=== PATIENT | female | born 1940 | race Caucasian/White ===

== ENCOUNTER 2019-02-08 12:46 | Outpatient (CLI) | payer MEDICARE, BC ==
--- NOTE | 2019-02-08 14:23 | MRI ---
MRI BRAIN AND IACs WITH AND WITHOUT IV CONTRAST: HISTORY: Sudden right ear hearing loss COMPARISON: None CORRELATION: None FINDINGS: No restricted diffusion is seen. No evidence of infarct, hemorrhage, mass, midline shift or abnormal extra-axial fluid collections is noted. No abnormal postcontrast enhancement is seen. The ventricular size is appropriate and the basilar cisterns are patent. There are multiple foci of T2 prolongation in the periventricular white matter, consistent with chron ic small vessel ischemic disease. High-resolution images through the IACs demonstrate no mass or abnormal postcontrast enhancement. There is mucosal disease in the paranasal sinuses. There is a tiny amount of fluid in the mastoid air cells. IMPRESSION: No evidence of acute intracranial process or mass.
== END 2019-02-08 12:47 | disposition home or self-care (01) ==
LOC: BICMRI 12:46
PROVIDERS: ATTEND Family Medicine
DX: H91.91 Unspecified hearing loss, right ear (principal); H93.11 Tinnitus, right ear
CPT/HCPCS: 70553; 82565

== ENCOUNTER 2019-06-11 15:02 | Outpatient (CLI) | payer MEDICARE, BC ==
--- NOTE | 2019-06-11 15:20 | RAD ---
EXAM: Left knee: 3 views INDICATIONS: Pain COMPARISON: None. FINDINGS: Joint spaces are maintained. No evidence of fracture. No significant degenerative change. N o evidence of joint effusion. No fracture. IMPRESSION: No acute finding
== END 2019-06-11 15:03 | disposition home or self-care (01) ==
LOC: BICRAD 15:02
PROVIDERS: ATTEND Family Medicine
DX: M25.562 Pain in left knee (principal)

== ENCOUNTER 2019-06-17 08:54 | Outpatient (CLI) | payer MEDICARE, BC ==
--- NOTE | 2019-06-17 09:47 | MMO ---
Bilateral MAMMO Bilat Screen [facility]. CLINICAL HISTORY: Patient is 78 years old and is seen for screening. The patient has no family history of breast cancer. The patient has no personal history of cancer. VIEWS: The views performed were: bilateral craniocaudal with tomosynthesis and bilateral mediolateral oblique with tomosynthesis. FILMS COMPARED: The present examination has been compared to prior imaging studies performed at [facility] on 06/15/2013, 07/07/2014, 07/24/2015 and 10/17/2016. This study has been interpreted with the assistance of computer-aided detection. MAMMOGRAM FINDINGS: There are scattered fibroglandular densities. Finding 1: There are vascular calcifications seen in both breasts. Finding 2: There are several intramammary lymph nodes seen in the right breast. There are no suspicious masses, suspicious calcifications, or new areas of architectural distortion. IMPRESSION: THERE IS NO MAMMOGRAPHIC EVIDENCE OF MALIGNANCY. A ROUTINE FOLLOW-UP MAMMOGRAM IN 1 YEAR IS RECOMMENDED. THE RESULTS OF THIS EXAM WERE SENT TO THE PATIENT. ACR BI-RADS Category 2 - Benign finding MAMMOGRAPHY NOTE: 1. A negative mammogram report should not delay a biopsy if a dominant of clinically suspicious mass is present. 2. Approximately 10% to 15% of breast cancers are not detected by mammography. 3. Adenosis and dense breasts may obscure an underlying neoplasm. Reported by: RICCO PEREIRA MD Electonically Signed: [id number]
--- NOTE | 2019-06-17 10:46 | BD ---
EXAM: Bone densitometry using DEXA HISTORY: 78 yo female. Screening for postmenopausal osteoporosis FINDINGS: L1--bone mineral density 0.895 g/sq cm; T score -0.9 ; Z score 1.5 L2--bone mineral density 0.867 g/sq cm; T score -1.5 ; Z score 1.2 L3--bone mineral density 0.979 g/sq cm; T score -1.0 ; Z score 1.8 L4--bone mineral density 0.981 g/sq cm; T score -0.7 ; Z score 2.1 Total L1-L4--bone mineral density 0.934 g/sq cm; T score -1.0 ; Z score 1.6 Left femoral neck--bone mineral density0.708; T score -1.3 ; Z score 1.0 Total proximal left femur--bone mineral density 0.899; T score -0.4 ; Z score 1.7 The 10 year fracture risk for a major osteoporotic fracture is 12% and for a hip fracture is 2.4%. IMPRESSION: Osteopenia
== END 2019-06-17 08:55 | disposition home or self-care (01) ==
LOC: BICMAMMO 08:54
PROVIDERS: ATTEND Family Medicine
DX: Z12.31 Encounter for screening mammogram for malignant neoplasm of breast (principal); Z13.820 Encounter for screening for osteoporosis; M85.89 Other specified disorders of bone density and structure, multiple sites
CPT/HCPCS: 77063; 77067; 77080

== ENCOUNTER 2020-02-16 11:36 | Outpatient (CLI) | payer MEDICARE, BC ==
--- NOTE | 2020-02-16 12:18 | RAD ---
2 VIEWS LEFT HIP: Date: HISTORY: Left hip pain after fall. FINDINGS: 2 views of the left hip show no evidence of acute fracture or dislocation. No significant degenerativ e changes are seen. IMPRESSION: Unremarkable exam. POS: [id number]
== END 2020-02-16 11:37 | disposition home or self-care (01) ==
LOC: BICRAD 11:36
PROVIDERS: ATTEND Family Medicine
DX: M25.552 Pain in left hip (principal)

== ENCOUNTER 2021-07-12 14:38 | Outpatient (CLI) | payer MEDICARE, BC | END 2021-07-12 14:39 | disposition home or self-care (01) | LOC: BICRAD 14:38 | PROVIDERS: ATTEND Family Medicine | DX: M54.50 Low back pain, unspecified (principal); G89.29 Other chronic pain; M47.816 Spondylosis without myelopathy or radiculopathy, lumbar region; M16.11 Unilateral primary osteoarthritis, right hip; M41.9 Scoliosis, unspecified | CPT/HCPCS: 72100 ==

== ENCOUNTER 2021-07-20 15:08 | Outpatient (CLI) | payer MEDICARE, BC | END 2021-07-20 15:09 | disposition home or self-care (01) | LOC: BICMRI 15:08 | PROVIDERS: ATTEND Family Medicine | DX: M48.061 Spinal stenosis, lumbar region without neurogenic claudication (principal); M47.816 Spondylosis without myelopathy or radiculopathy, lumbar region; M79.89 Other specified soft tissue disorders | CPT/HCPCS: 72148 ==